=== PATIENT | female | born 1950 | race Two or more races ===

== ENCOUNTER 2023-09-03 08:37 | Day surgery (SDC) | payer OTHER ==
[~2023-09-03] VITALS: Ht 167.6 cm; Wt 92.1 kg
[~2023-09-03 08:37] MED LIST: ASPI-543 PO; ATO40T PO; CARV3.1240 PO; DICL75TA3 PO; EZET10TA22 PO; INSUINJ37 SC; IPRAAER6 IN; LOSA100T58 PO; NIFE1TAB31 PO; NITR0.4S29 SL; ROSU40TA81 PO; SOLI5TAB42 PO
[2023-09-03] MEDS ORDERED: ANGIOMAX 250 MG VIAL IV ONE (11:18)
[2023-09-03] MEDS ORDERED: VERAPAMIL 2.5MG/ML INJ 2ML VIAL IV ONE (11:19)
[2023-09-03] MEDS ORDERED: fentaNYL CITRATE 100 MCG/2 ML VL ONE (11:19)
[2023-09-03] MEDS ORDERED: HEPARIN SODIUM (PORCINE) 5000 UNITS/ML 1ML VIAL ONE (11:19)
[2023-09-03] MEDS ORDERED: MIDAZOLAM HCL 2MG/2ML 2ml VIAL (1mg/ml) ONE (11:19)
[2023-09-03] MEDS ORDERED: IODIXANOL 320MG/ML 100ML BTL IV ONE (11:20)
[2023-09-03] MEDS ORDERED: SODIUM CHL 0.9% 0 ML ONE (11:20)
[2023-09-03] MEDS ORDERED: LIDOCAINE 2%HCL (LOCAL ANESTH.) INJ 20ML MDV ONE (11:20)
== END 2023-09-03 14:12 | disposition home or self-care (01) ==
LOC: CATH 08:37
PROVIDERS: ATTEND Internal Medicine Cardiovascular Disease
DX: R94.39 Abnormal result of other cardiovascular function study (principal); I25.10 Atherosclerotic heart disease of native coronary artery without angina pectoris; I77.1 Stricture of artery; I11.9 Hypertensive heart disease without heart failure; Z79.899 Other long term (current) drug therapy; R06.09 Other forms of dyspnea; R07.89 Other chest pain; E11.9 Type 2 diabetes mellitus without complications; J44.9 Chronic obstructive pulmonary disease, unspecified; E78.5 Hyperlipidemia, unspecified; F17.210 Nicotine dependence, cigarettes, uncomplicated; Z98.890 Other specified postprocedural states
CPT/HCPCS: 93458; C1894; J1644; J2250; J3010; 99152; Q9967